=== PATIENT | male | born 1995 | race African-American/Black ===

== ENCOUNTER 2017-03-14 17:20 | Emergency (ER) | payer BC, OTHER ==
[~2017-03-14] VITALS: Ht 177.8 cm; Wt 68.0 kg
--- NOTE | ~2017-03-14 | CR169 ---
[facility] A Service of [facility] RADIOLOGY TEXT RESULTS PATIENT: ALEX MARINELLI LOCATION: CFTX : [birth year] UNIT #: [id number] AGE: [address]: Kathy Matta APRN SEX: M ORDER DR: [id number] [facility] [address] [place], [place] [address] [id number] E MR#: [id number] Acc #: [id number] NAME: ALEX MARINELLI : 1995 SEX: M STUDY DATE/TIME: 03/14/2017 18:14 UNIT: [facility] ROOM: STUDY DESCRIPTION: CR Knee 2 Views Lt Attending Physician: Kathy Matta A.P.R.N. Ordering Physician: Ed Jeffry Ferreira M.D. Primary Care Physician: Primary Care Physician No MEDICAL IMAGING REPORT This report is preliminary unless electronic signature is present EXAM Left knee 3 views, 03/14/2017 HISTORY Left knee pain for 1 week. No known injury. FINDINGS AP and lateral projection of the knee shows smooth articular anatomy without indication of fracture or dislocation at the major weight-bearing surface of the knee. There is no indication of radiopaque foreign body about the knee surface or joint effusion. IMPRESSION Normal knee. Dictated by... Deng Kevin M.D. THIS IS AN ELECTRONICALLY VERIFIED REPORT Deng Kevin M.D. at 03/15/2017 10:25 AM MARLENE/jethro TD: 03/14/2017 21:23 JOB #: [id number] MEDICAL IMAGING REPORT Page 1 of 1 COPY
== END 2017-03-14 19:10 | disposition home or self-care (01) ==
LOC: CED 17:20 → CFTX 17:20
DX: S83.511A Sprain of anterior cruciate ligament of right knee, initial encounter (principal); S83.512A Sprain of anterior cruciate ligament of left knee, initial encounter; W01.0XXA Fall on same level from slipping, tripping and stumbling without subsequent striking against object, initial encounter; Y93.01 Activity, walking, marching and hiking; Y92.69 Other specified industrial and construction area as the place of occurrence of the external cause; Y99.0 Civilian activity done for income or pay
CPT/HCPCS: 73560; 99283